=== PATIENT | female | born 1960 | race Caucasian/White ===

== ENCOUNTER → 2016-11-04 | Outpatient (CLI) | payer OTHER | END | disposition home or self-care (01) | LOC: GMAH 10:35 | PROVIDERS: ATTEND Family Medicine | DX: Z00.00 Encounter for general adult medical examination without abnormal findings (principal) ==

== ENCOUNTER 2016-12-31 20:41 | Emergency (ER) | payer OTHER ==
[2016-12-31 20:59] VITALS: TEMP 98.3
--- NOTE | 2016-12-31 21:18 | ED.PDOC ---
History of Present Illness - General Chief Complaint: Syncope/Near Syncope Stated Complaint: Syncope Time Seen by Provider: 12/31/16 20:45 Source: family - Exam Limitations: no limitations - History of Present Illness Initial Comments: Vanita Crook 56 y/o female brought by after she had garbled speech then passed out for about 5 seconds and head tilted to left side and noted slight jerky movement then was fully conscious after incident.Denies dizziness,headache,chest pains or blurry vision Timing/Prior Episodes: single episode today Precipitating Factors: other - eating Context: sitting Loss of Consciousness: brief (seconds) Current Symptoms: back to normal Allergies/Adverse Reactions: Allergies Sulfa Antibiotics Allergy (Verified 12/31/16 20:54) Home Medications: Ambulatory Orders Losartan Potassium 50 mg PO DAILY 12/31/16 Metoprolol Succinate [Metoprolol Succinate ER] 100 mg PO DAILY 12/31/16 Review of Systems - Review of Systems Constitutional: States: no symptoms reported EENTM: States: no symptoms reported Respiratory: States: no symptoms reported Cardiology: States: no symptoms reported, other - rapid heart rate -stated did not take b-blockers dose tonight Gastrointestinal/Abdominal: States: no symptoms reported Genitourinary: States: no symptoms reported Musculoskeletal: States: no symptoms reported Skin: States: no symptoms reported Neurological: States: see HPI Endocrine: States: no symptoms reported Hematologic/Lymphatic: States: no symptoms reported Past Medical History (General) - Patient Medical History Hx Seizures: No Hx Stroke: No Hx Dementia: No Hx Asthma: No Hx of COPD: No Hx Cardiac Disorders: Yes - tachycardia Hx Congestive Heart Failure: No Hx Pacemaker: No Hx Hypertension: Yes Hx Thyroid Disease: No Hx Diabetes: No Hx Gastroesophageal Reflux: No Hx Renal Disease: No Hx Cancer: No Hx of HIV: No Hx Hepatitis C: No Hx MRSA: No MRSA Source:: Urine Surgical History: tonsillectomy, other - btl - Vaccination History Hx Tetanus, Diphtheria Vaccination: No Hx Influenza Vaccination: Yes Hx Pneumococcal Vaccination: No Immunizations Up to Date: Yes - Social History Hx Tobacco Use: No Hx Alcohol Use: No - Female History Patient is a Female of Child Bearing Age (10 -59 yrs old): Yes Patient : No Physical Exam - Physical Exam General Appearance: Alert, Anxious, Comfortable, No apparent distress, Other - speech fluent Eyes, Ears, Nose, Throat Exam: PERRL/EOMI, normal ENT inspection, TMs normal, pharynx normal Neck: non-tender, full range of motion, supple Cardiovascular/Respiratory: regular rate, rhythm, no M/R/G, normal peripheral pulses, no JVD, normal breath sounds Gastrointestinal/Abdominal: normal bowel sounds, non tender, soft Back Exam: normal inspection, no CVA tenderness, no vertebral tenderness Extremity: normal inspection, no pedal edema, no calf tenderness Mental Status: alert, oriented x 3 sour bleaching pleater Exam: normal hearing, normal speech, PERRL Coordination/Gait: normal gait Motor/Sensory: no motor deficit, no sensory deficit, no pronator drift Skin Exam: normal color, warm/dry Lymphatic: no adenopathy Progress - Progress Progress: 12/31/16 23:15 Vital Signs - 8 hr 12/31/16 12/31/16 12/31/16 20:54 20:56 21:42 Temperature 98.3 F Pulse Rate [ 105 H 105 H 100 H Right radial] Respiratory 18 18 20 Rate Blood Pressure 163/95 119/69 [Left Arm] O2 Sat by Pulse 97 96 Oximetry 12/31/16 22:00 Temperature Pulse Rate [ 100 H Right radial] Respiratory 18 Rate Blood Pressure 119/69 [Left Arm] O2 Sat by Pulse 96 Oximetry Laboratory Tests 12/31/16 12/31/16 12/31/16 21:15 21:15 21:15 WBC 7.4 RBC 4.69 Hgb 14.0 Hct 41.7 MCV 88.9 MCH 29.9 MCHC 33.6 RDW 12.5 Plt Count 214 MPV 9.4 Absolute Neuts (auto) 3.70 Absolute Lymphs (auto) 2.70 Absolute Monos (auto) 0.70 Absolute Eos (auto) 0.30 Absolute Basos (auto) 0.00 Neutrophils % 49.7 Lymphocytes % 36.4 Monocytes % 8.9 Eosinophils % 4.6 Basophils % 0.4 PT 12.1 INR 1.070 D-Dimer, Quantitative < 230 Sodium 141 Potassium 3.7 Chloride 105 Carbon Dioxide 25 Anion Gap 14.7 BUN 20 H Creatinine 0.75 BUN/Creatinine Ratio 26.7 H Random Glucose 155 H Serum Osmolality 287.0 Calcium 10.6 H Total Bilirubin 0.5 AST 27 ALT 36 Alkaline Phosphatase 64 Troponin I Serum Total Protein 7.7 Albumin 4.6 Globulin 3.1 Albumin/Globulin Ratio 1.5 Lipase TSH Urine Color Urine Appearance Urine pH Ur Specific [place] Urine Protein Urine Glucose (UA) Urine Ketones Urine Blood Urine Nitrite Urine Bilirubin Urine Urobilinogen Ur Leukocyte Esterase Urine RBC Urine WBC Ur Epithelial Cells Urine Bacteria 12/31/16 12/31/16 12/31/16 21:15 21:15 22:02 WBC RBC Hgb Hct MCV MCH MCHC RDW Plt Count MPV Absolute Neuts (auto) Absolute Lymphs (auto) Absolute Monos (auto) Absolute Eos (auto) Absolute Basos (auto) Neutrophils % Lymphocytes % Monocytes % Eosinophils % Basophils % PT INR D-Dimer, Quantitative Sodium Potassium Chloride Carbon Dioxide Anion Gap BUN Creatinine BUN/Creatinine Ratio Random Glucose Serum Osmolality Calcium Total Bilirubin AST ALT Alkaline Phosphatase Troponin I < 0.02 Serum Total Protein Albumin Globulin Albumin/Globulin Ratio Lipase 39 TSH 1.64 Urine Color Yellow Urine Appearance Clear Urine pH 6.0 Ur Specific [place] 1.010 Urine Protein Negative Urine Glucose (UA) Negative Urine Ketones Negative Urine Blood Small H Urine Nitrite Negative Urine Bilirubin Negative Urine Urobilinogen 0.2 Ur Leukocyte Esterase Large H Urine RBC 1-3 Urine WBC 10-20 H Ur Epithelial Cells 1-3 Urine Bacteria 1+ 12/31/16 22:43 WBC RBC Hgb Hct MCV MCH MCHC RDW Plt Count MPV Absolute Neuts (auto) Absolute Lymphs (auto) Absolute Monos (auto) Absolute Eos (auto) Absolute Basos (auto) Neutrophils % Lymphocytes % Monocytes % Eosinophils % Basophils % PT INR D-Dimer, Quantitative Sodium Potassium Chloride Carbon Dioxide Anion Gap BUN Creatinine BUN/Creatinine Ratio Random Glucose Serum Osmolality Calcium Total Bilirubin AST ALT Alkaline Phosphatase Troponin I < 0.02 Serum Total Protein Albumin Globulin Albumin/Globulin Ratio Lipase TSH Urine Color Urine Appearance Urine pH Ur Specific [place] Urine Protein Urine Glucose (UA) Urine Ketones Urine Blood Urine Nitrite Urine Bilirubin Urine Urobilinogen Ur Leukocyte Esterase Urine RBC Urine WBC Ur Epithelial Cells Urine Bacteria - EKG/XRAY/CT EKG: Sinus Comments: incomplete RBBB heart rate 105 XRAY: chest - no acute abnormalities CT Ordered: Yes - head-no acute abnormalities noted Departure - Departure Clinical Impression: Sinus tachycardia, Incomplete right bundle branch block (RBBB) determined by electrocardiography Syncope Qualifiers: Syncope type: unspecified Qualified Code(s): R55 - Syncope and collapse Time of Disposition: 23:22 Disposition: Discharge to Home or Self Care Condition: Good Departure Forms: ED Discharge - Pt. Copy, Patient Portal Self Enrollment Referrals: Maximo Rodriguez MD [Primary Care Provider] - 1-2 Weeks Home Medications: Ambulatory Orders Losartan Potassium 50 mg PO DAILY 12/31/16 Metoprolol Succinate [Metoprolol Succinate ER] 100 mg PO DAILY 12/31/16 Additional Instructions: RETURN TO EMERGENCY ROOM NEEDED;FOLLOW UP WITH PRIMARY MD IN AM 01/01/2017 call for appointment
--- NOTE | 2016-12-31 21:59 | CT ---
PROCEDURE: Head CLINICAL HISTORY: 56 years Female syncope COMPARISON: None. TECHNIQUE: Contiguous axial CT images obtained through the brain without IV contrast. This exam was performed according to our department optimization program which includes automated exposure control, adjustment of the mA and/or kv according to patient size and/or use of iterative reconstruction technique. FINDINGS: The ventricles and sulci are within normal limits for the patient's age. No midline shift or mass effect. No masses identified. No acute intracranial hemorrhage. No fluid or significant mucosal thickening in the visualized paranasal sinuses. No depressed calvarial fractures. IMPRESSION: No acute intracranial abnormality is identified. Electronically signed by: Luna Denny 12/31/2016 9:58 PM CDT
--- NOTE | 2016-12-31 22:17 | RAD ---
EXAM DESCRIPTION: Chest,1 View CLINICAL HISTORY: 56 years Female rapid heart rate COMPARISON: None. FINDINGS: The cardiomediastinal silhouette appears unremarkable. No consolidating infiltrates or pleural effusions. No pneumothorax. Lungs appear mildly hyperinflated with flattening of hemidiaphragms. IMPRESSION: No acute abnormality is identified. Electronically signed by: Luna Denny 12/31/2016 10:16 PM CDT
[2016-12-31 23:35] VITALS: O2SAT 98
[2016-12-31 23:36] VITALS: BP 136/90
== END 2016-12-31 23:36 | disposition home or self-care (01) ==
LOC: ER 20:41
DX: R00.0 Tachycardia, unspecified (principal); I45.10 Unspecified right bundle-branch block; R55 Syncope and collapse; N39.0 Urinary tract infection, site not specified; I10 Essential (primary) hypertension; Z88.2 Allergy status to sulfonamides

== ENCOUNTER → 2017-02-25 | Outpatient (CLI) | payer OTHER ==
--- NOTE | 2017-02-27 07:25 | MRI ---
EXAM DESCRIPTION: MRA Head and/or Neck CLINICAL HISTORY: 57 years Female, STENOSIS COMPARISON: None. TECHNIQUE: MRA of the neck was performed without gadolinium contrast including [id number] and 3-D MIP reconstructed images. MRA of the brain was performed without gadolinium contrast including [id number] and 3-D MIP reconstructed images. All diameter measurements and percent stenosis values in this report are based on NASCET criteria. FINDINGS: MRA NECK: The study is only slightly limited by motion artifact. With this in mind, visualized portions of the aortic arch, innominate and subclavian arteries are unremarkable. No left or right-sided common carotid artery stenosis. The right carotid bifurcation is unremarkable, and there is no significant right ICA stenosis through the level of the mid right ICA. More distal portions of the right ICA are not included on this exam. The left carotid bifurcation is fairly well-maintained without evidence of significant left ICA stenosis through the level of the mid left ICA. The proximal and mid vertebral arteries are codominant and otherwise unremarkable. MRA BRAIN: The distal internal carotid arteries proximal to the skull base are of normal caliber bilaterally. Petrous, precavernous and cavernous segments of the ICAs also show no evidence of aneurysm or stenosis. Anterior and middle cerebral arteries and their visualized intracranial branches are perfused and otherwise unremarkable. The distal right vertebral artery is dominant. No basilar artery aneurysm or stenosis. The superior cerebellar arteries are small bilaterally. There is persistent origin of the middle cerebral arteries bilaterally, a common anatomic variant. The basilar artery contributes minimally to left posterior cerebral artery perfusion. The middle cerebral arteries are diffusely prominent but otherwise unremarkable. IMPRESSION: No evidence of left or right sided carotid artery stenosis or intracranial vascular abnormality. Electronically signed by: Dustin Keith MD 02/27/2017 7:24 AM CDT
--- NOTE | 2017-02-27 07:25 | MRI ---
EXAM DESCRIPTION: MRA Head and/or Neck CLINICAL HISTORY: 57 years Female, STENOSIS COMPARISON: None. TECHNIQUE: MRA of the neck was performed without gadolinium contrast including [id number] and 3-D MIP reconstructed images. MRA of the brain was performed without gadolinium contrast including [id number] and 3-D MIP reconstructed images. All diameter measurements and percent stenosis values in this report are based on NASCET criteria. FINDINGS: MRA NECK: The study is only slightly limited by motion artifact. With this in mind, visualized portions of the aortic arch, innominate and subclavian arteries are unremarkable. No left or right-sided common carotid artery stenosis. The right carotid bifurcation is unremarkable, and there is no significant right ICA stenosis through the level of the mid right ICA. More distal portions of the right ICA are not included on this exam. The left carotid bifurcation is fairly well-maintained without evidence of significant left ICA stenosis through the level of the mid left ICA. The proximal and mid vertebral arteries are codominant and otherwise unremarkable. MRA BRAIN: The distal internal carotid arteries proximal to the skull base are of normal caliber bilaterally. Petrous, precavernous and cavernous segments of the ICAs also show no evidence of aneurysm or stenosis. Anterior and middle cerebral arteries and their visualized intracranial branches are perfused and otherwise unremarkable. The distal right vertebral artery is dominant. No basilar artery aneurysm or stenosis. The superior cerebellar arteries are small bilaterally. There is persistent origin of the middle cerebral arteries bilaterally, a common anatomic variant. The basilar artery contributes minimally to left posterior cerebral artery perfusion. The middle cerebral arteries are diffusely prominent but otherwise unremarkable. IMPRESSION: No evidence of left or right sided carotid artery stenosis or intracranial vascular abnormality. Electronically signed by: Dustin Keith MD 02/27/2017 7:24 AM CDT
== END | disposition home or self-care (01) ==
LOC: MRI 12:58
PROVIDERS: ATTEND Psychiatry & Neurology Neurology
DX: I63.411 Cerebral infarction due to embolism of right middle cerebral artery (principal); G40.209 Localization-related (focal) (partial) symptomatic epilepsy and epileptic syndromes with complex partial seizures, not intractable, without status epilepticus; I65.09 Occlusion and stenosis of unspecified vertebral artery